=== PATIENT | female | born 1955 | race Caucasian/White ===

== ENCOUNTER 2022-02-24 07:16 | Emergency (ER) | payer MEDICARE, SELFPAY ==
[2022-02-24 07:16] VITALS: O2SAT 91
--- NOTE | 2022-02-24 07:21 | XRR_ITS ---
PROCEDURE INFORMATION: Exam: XR Chest Exam date and time: 02/24/2022 7:30 AM Age: 66 years old Clinical indication: Cough and dyspnea and shortness of breath; Patient HX: SOB, coughing x 6 days; Additional info: Dyspnea/cough TECHNIQUE: Imaging protocol: Radiologic exam of the chest. Views: 1 view. COMPARISON: No relevant prior studies available. FINDINGS: Lungs: The lungs are somewhat hyperinflated with increased interstitial markings, likely representing COPD. There is a patchy airspace opacity along the medial aspect of the right lung base, which may represent atelectasis or pneumonia in the adequate clinical setting. Pleural spaces: Unremarkable. No pleural effusion. No pneumothorax. Heart/Mediastinum: Stable cardiomediastinal silhouette. Bones/joints: Degenerative changes of the spine seen. XR/XR chest 1V portable [id number] IMPRESSION: 1. Medial right lung base atelectasis versus pneumonia. Clinical correlation is recommended. 2. COPD changes.
[2022-02-24 07:44] VITALS: BP 102/62; PULSE 89; RESP 17; TEMP 37.1; O2SAT 91; BMI 26.6
--- NOTE | 2022-02-24 07:55 | ED_ITS ---
HPI - COVID General: Chief Complaint: COVID symptoms Stated Complaint: Covid + since , SOB, Fever Time Seen by Provider: 02/24/22 07:20 Triage information: Has fever, cough or shortness of breath . Exposure to COVID + person last 14 days History of Present Illness: Patient is a 66-year-old female comes to the ED with COVID symptoms. Patient tested positive for COVID-19 via at home test on the first day she started developing symptoms 7 days ago. Her symptoms consisted of fever, nasal congestion drainage, cough, body aches and diarrhea. Provider wrote her prescription for Paxlovid and she has been taking doses daily and her last dose is today. she is still having some shortness of breath and a cough. Cough is mostly dry and nonproductive. Patient has home pulse ox and states that last night her oxygen levels were running in the 80s at home. Fevers resolved 2 days ago. COVID 19 common symptoms: positive fever(s), non-productive cough, dyspnea, fatigue, body aches and diarrhea; negative chills, productive cough, headache(s), throat pain, nasal congestion, nausea or vomiting COVID 19 other sytmptoms: negative chest pain COVID Results: No Data to Display Review of Systems Const: Reports: fever(s), body aches and fatigue; Denies: chills Eyes: Denies: change in vision or eye discomfort ENMT: Denies: throat pain, odynophagia, nasal discharge or nasal congestion Card: Denies: chest pain, palpitations, edema, swelling of feet/ankles, dyspnea on exertion or orthopnea Resp: Reports: dyspnea and non-productive cough; Denies: productive cough GI: Reports: diarrhea; Denies: abdominal pain, nausea, vomiting, constipation or hematochezia : Denies: flank pain, dysuria or hematuria Musc: Denies: neck pain, back pain or extremity swelling Skin/Breast: Denies: rash or new lesions Neuro: Denies: headache(s), numbness in extremities or weakness in extremities PFS ED PFSH: Medical History No pertinent family history Surgical History No pertinent past surgical history Physical Exam Const: COMMON NORMALS: no acute distress, patient oriented x3, healthy appearing and alert GENERAL APPEARANCE: cooperative and comfortable HENMT: COMMON NORMALS: normocephalic HEAD & SCALP: normocephalic MOUTH: Normal oral and palatal mucosa present THROAT: posterior oropharynx normal and uvula midline Neck/C-Spine: COMMON NORMALS: supple GENERAL: Yes normal visual inspection Resp: COMMON NORMALS: normal respiratory effort, No retractions, No use of accessory muscles and clear to auscultation bilaterally AUSCULTATION: clear to auscultation bilaterally Cardio: COMMON NORMALS: regular rate, regular rhythm, S1 normal heart sound present, S2 normal heart sound present, No gallops present (Cardio), No clicks present (Cardio), No murmurs present (Cardio) and Peripheral pulses 2+ throughout RATE: regular rate RHYTHM: regular rhythm HEART SOUNDS: S1 normal heart sound present and S2 normal heart sound present PERIPHERAL PULSES: Peripheral pulses 2+ throughout GI: COMMON NORMALS: Normal to inspection, nondistended, normoactive bowel sounds present, Soft to palpation, non-tender and no masses PALPATION: Yes Soft to palpation : COMMON NORMALS: Yes no CVA tenderness BLADDER/KIDNEY EXAM: Yes no CVA tenderness Back/Pelvis: COMMON NORMALS: no CVA tenderness Extremity: COMMON NORMALS: normal to inspection Neuro: COMMON NORMALS: patient oriented x3 and moves all extremities SENSORIUM/ORIENTATION: Yes alert Skin: GENERAL SKIN EXAM: dry skin Course Vital Signs: Vital signs: Vital Signs Temperature 98.8 F 02/24/22 07:44 Pulse Rate 89 02/24/22 07:44 Respiratory Rate 17 02/24/22 07:44 Blood Pressure 102/62 02/24/22 07:44 Pulse Oximetry 93 02/24/22 08:[address] [facility] - COVID Medical Decision Making Patient is a 66-year-old female who comes to the ED with COVID symptoms. Patient had a positive home COVID test and symptoms started 7 days ago. Put patient on Paxlovid and she is taking her last dose today. She still having some shortness of breath and says her home oxygen levels last night were in the 80s. Vitals are stable table here in the ED and her O2 sat is around 91 to 92% consistently. Exam is benign and patient appears nontoxic and in no acute distress. COVID 19 test pending. Chest x-ray showed medial right lung base atelectasis versus pneumonia. Due to patient's O2 sat being close to low 90s a nd her's COVID diagnosis I am discharging her home with 2 L of home O2 as needed. Patient diagnosed with COVID-19 and discharged home with a prescription for Z-Miguel, steroid and Tessalon Perles. She was told to follow-up with her PCP in the next 3 to 5 days for reevaluation. Return to ED precautions given. Patient understood and agreed with plan. Lab Data I reviewed the patient's lab results. Radiology Impressions Chest X-Ray 02/24/22 07:21 IMPRESSION: 1. Medial right lung base atelectasis versus pneumonia. Clinical correlation is recommended. 2. COPD changes. No Data to Display Discharge Plan Discharge Patient Disposition: Home Clinical Impression: COVID-19 Condition: Stable Prescriptions: New azithromycin 250 mg tablet See Rx Instructions .ROUTE .COMPLEX Qty: 6 0RF Rx Instructions: For 250 mg dose pack: take 500 mg today (day 1), then 250 mg for 4 days (days 2-5) Medrol (Miguel) 4 mg tablets,dose pack See Rx Instructions .ROUTE .COMPLEX Qty: 21 0RF Rx Instructions: orally per package directions benzonatate 100 mg capsule 100 mg PO TID PRN (Reason: cough) Qty: 15 0RF Discharge Orders: Discharge ED (Routine); Ordered 02/24/22 Ordered By: Fausto Adame Other Ambulatory Orders: DME: Oxygen (Order) Location: None Selected Ordered By: Fausto Adame Discharge Diet: Regular Discharge Activity: Increase activity as tolerated Patient Instructions: Using Oxygen at Home (ED), COVID-19 (Coronavirus Disease 2019) (ED) Activity Restrictions/Additional Instructions: Follow-up with medical provider as directed in the next 3 to 5 days for reevaluation. Use home O2 as needed for any shortness of breath or low oxygen levels. take medications as prescribed. Return to the ER or your medical provider if condition worsens. Please read and understand discharge inst ructions. Thank you for choosing [facility] for your healthcare needs today. Please realize this is an emergency room and that we are providing you with a medical screening exam and this may not be complete and all inclusive of all the testing and or work up that you may need to determine your ailment or severity of your illness. It is very important that you follow up as instructed or that you return to the Emergency Department should you have concerns or if your condition changes or worsens in any way. Coding Level of Care Code ED Berry Grower for Mariposa Alicea Exam Comprehensive
[2022-02-24 08:06] VITALS: O2SAT 93; O2SAT 94
[2022-02-24 10:01] VITALS: O2SAT 94
[2022-02-25 13:58] LABS: Quest SARS-CoV-2 RNA INCONCLUSIVE (NOT DETECTED)
== END 2022-02-24 10:02 | disposition home or self-care (01) ==
PROVIDERS: Emergency Provider Physician Assistant
DX: U07.1 COVID-19 (principal)
CPT/HCPCS: 71045; 87635; 94760; 99284

== ENCOUNTER 2024-11-20 13:05 | Observation (INO) | payer MEDICARE, SELFPAY ==
[2024-11-20] VITALS (14 sets, daily range): BP systolic 102–134; BP diastolic 51–69; PULSE 93–105; RESP 16–17; TEMP 36.8–37.8; O2SAT 91–97; BMI 27.6
[2024-11-20 13:29] LABS: Basophils % 0.2 %; Eosinophils % 0.1 %; Hematocrit 42.9 % (36-47); Lymphocytes % 5.8 %; Mean Corpuscular HGB Conc 33.3 g/dL (30-55); Mean Corpuscular Hemoglobin 29.6 pg (27-33); Mean Corpuscular Volume 88.8 fl (85-98); Mean Platelet Volume 11.3 fL (7.4-10.4); Monocytes # 0.8 10^3/uL (0.2-0.9); Monocytes % 4.4 %; Neutrophils # 15.12 10^3/uL (1.8-7.7); Nucleated Red Blood Cells % 0 %; Platelet Count 237 10^3/cmm (157-399); Red Blood Count 4.83 10^6/uL (3.85-5.65); Red Cell Distribution Width 13.4 % (12.1-15.1); White Blood Count 16.98 10^3/uL (3.29-11.43)
[2024-11-20 13:48] LABS: Alanine Aminotransferase 11 U/L (0-33); Albumin Level 4.1 g/dL (3.5-5.2); Alkaline Phosphatase 73 U/L (35-105); Anion Gap 16.4 (5-19); Aspartate Amino Transferase 19 U/L (0-32); Blood Urea Nitrogen 19 mg/dL (8-23); Calcium 8.9 mg/dL (8.5-10.5); Carbon Dioxide 24 mmol/L (22-29); Chloride 103 mmol/L (98-107); Creatinine Clr Calc Pharmacy 66.2488; Globulin 2.5 g/dL (1.3-4.6); Glomerular Filtration Rate 99.1 mL/min (90-130); Glucose 137 mg/dL (65-115); Lipase 15 U/L (13-60); Osmolality Calculated 294 mOsm/kg (285-295); Potassium 3.4 mmol/L (3.5-5.1); Sodium 140 mmol/L (136-145); Total Bilirubin 0.5 mg/dL (0.15-1.2); Total Protein 6.6 g/dL (6.6-8.7)
--- NOTE | 2024-11-20 14:53 | CT_ITS ---
WS: [id number] CT ABDOMEN AND PELVIS WITH CONTRAST HISTORY: abd pain TECHNIQUE: Imaging performed of the abdomen and pelvis with IV contrast. Single phase imaging of the abdomen. Coronal and sagittal reformats are submitted. All CT scans at [facility] use at least one of these dose optimization techniques: automated exposure control; mA and/or kV adjustment per patient size (includes targeted exams where dose is matched to clinical indication); or iterative reconstruction. IV CONTRAST: Omnipaque 350; 100 mL IV. Oral contrast: No DLP: 360.26 mGy.cm COMPARISON: None available. Lower thorax: Benign granuloma RIGHT lung base. Heart is normal size. Small hiatal hernia. Atherosclerotic calcifications in the distal thoracic aorta. Liver/biliary system: Normal size with no intrahepatic dilatation. Gallbladder: Normal. No gallstones or wall thickening. No pericholecystic fluid. Pancreas: Normal size pancreas and pancreatic duct. No adjacent inflammation. Spleen: Normal size spleen. No mass or infarct. Granulomata. Adrenal glands: Normal. Right kidney: Normal. Left kidney: Normal. Aorta: Extensive atherosclerotic plaque within the abdominal aorta. There is intimal thickening and calcified plaque within the wall of the aorta. 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 Most significant stenosis involves the origin of the SMA. No thrombus is identified. Lymphadenopathy: None. Free fluid: Small amount of free fluid in the pelvis. GI tract: Nondistended stomach. No small bowel obstruction. There is a single loop of small bowel deep within the pelvis with mild enhancement although no dilatation. The appendix is not identified. Long segment mucosal thickening with edema involving the descending colon nearly to the level of the rectum. There is marked submucosal edema and narrowing of the lumen with pericolonic edema. There are a few scattered diverticula. Abdominal wall: Unremarkable abdominal wall. No hernia. Pelvis: Small amount of free fluid in the pelvis. Bones: Mild increase in lumbar lordosis. L4 anterolisthesis by [address]/CT abdomen pelvis w con* [id number] IMPRESSION: 1. Long segment markedly abnormal loop of distal colon beginning near the sple tim flexure to nearly the rectum. Narrowing of the lumen with marked submucosal edema and inflammation. Due to the long segment this may be infectious or isch emic. No pneumatosis or free air is identified. 2. Small amount of free fluid in the pelvis. 3. Moderate atherosclerotic plaque within the aorta and mesenteric arteries. T here is a component of stenosis involving the proximal SMA. No portal venous ai r. 4. There is an additional loop of small bowel deep within the pelvis which als o appears mildly edematous suggesting acute enteritis. Notified Tj Li DO at 11/20/2024 4:16 PM.
[2024-11-20 15:15] LABS: Bilirubin Urine 1+ (Negative); Blood Urine Negative (Negative); Glucose Urine UA Negative (Normal); Ketones Urine Trace (Negative); Leukocyte Esterase Urine Trace (Negative); Nitrate Urine Negative (Negative); Protein Urine 1+ (Negative); Urine Appearance Cloudy (CLEAR); Urine Color Dark Yellow (Yellow); pH Urine 5.5 (5-7)
--- NOTE | 2024-11-20 15:15 | W.ED.ABDPA2 ---
HPI - Abdominal Pain General: Chief Complaint: Abdominal Pain Stated Complaint: vomiting Time Seen by Provider: 11/20/24 14:04 History of Present Illness: 69-year-old female presents emergency room complaining of abdominal cramping and discomfort along with diarrhea that began around 3 AM. She has had several bloody stools. Subjectively reporting a fever she is mildly tachycardic on arrival no vomiting. No recent medication changes denies chest pain or shortness of breath no dysuria urgency or frequency Associated Symptoms: Reports diarrhea, hematochezia and nausea; Denies chills, coffee ground emesis, dysuria, fever(s), hematemesis, melena and vomiting Related Data Home Medications ?Medication ?Instructions ?Recorded ?Confirmed albuterol sulfate 90 mcg/actuation 2 puff inhalation Q4H PRN 11/20/24 11/20/24 aerosol inhaler Shortness Of Breath Or Wheezing aspirin 81 mg tablet,delayed 81 mg PO DAILY 11/20/24 11/20/24 release (Nikkie Low Dose Aspirin) famotidine 40 mg tablet 40 mg PO BID 11/20/24 11/20/24 losartan 100 1 tab PO DAILY 11/20/24 11/20/24 mg-hydrochlorothiazide 25 mg tablet metoprolol tartrate 25 mg tablet 25 mg PO BID 11/20/24 11/20/24 omeprazole 20 mg capsule,delayed 20 mg PO QAM 11/20/24 11/20/24 release Allergies Allergy/AdvReac Type Severity Reaction Status Date / Time No Known Allergies Allergy Verified 11/20/24 13:39 Review of Systems Const: Denies: fever(s) or chills Card: Denies: chest pain Resp: Denies: dyspnea GI: Reports: abdominal pain, nausea, diarrhea and hematochezia; Denies: vomiting, hematemesis, coffee ground emesis, melena or mucus in stool : Denies: dysuria, urinary frequency or urinary urgency Musc: Denies: neck pain or back pain Skin/Breast: Denies: rash PFSH ED PFSH: Medical History No pertinent family history Surgical History No pertinent past surgical history Physical Exam Const: GENERAL APPEARANCE: cooperative ORIENTATION/CONSCIOUSNESS: Yes awake, Yes oriented to person, Yes oriented to place and Yes oriented to time HENMT: COMMON NORMALS: normocephalic, atraumatic and hearing grossly normal bilaterally HEAD & SCALP: normocephalic and atraumatic Resp: COMMON NORMALS: normal respiratory effort, No retractions, No use of accessory muscles and clear to auscultation bilaterally AUSCULTATION: clear to auscultation bilaterally Cardio: COMMON NORMALS: regular rate, regular rhythm and No murmurs present (Cardio) RATE: regular rate RHYTHM: regular rhythm GI: COMMON NORMALS: No hepatosplenomegaly present AUSCULTATION: Yes normoactive bowel sounds PALPATION: Yes Tenderness to palpation present (GI) (Diffuse), No Guarding due to palpation present (GI) and Yes No hepatosplenomegaly present Extremity: COMMON NORMALS: normal to inspection, capillary refill normal, no clubbing, cyanosis or edema, no calf tenderness and no pedal edema Neuro: SENSORIUM/ORIENTATION: Yes oriented to person, Yes oriented to place and Yes oriented to time Skin: COMMON NORMALS: no rashes or lesions noted GENERAL SKIN EXAM: no rashes or lesions noted Course Vital Signs: Vital signs: Vital Signs Temperature 98.2 F 11/20/24 13:35 Pulse Rate 103 H 11/20/24 13:35 Respiratory Rate 16 11/20/24 13:35 Blood Pressure 102/65 11/20/24 13:35 Pulse Oximetry 94 11/20/24 13:35 MDM - Abdominal Pain Medical Decision Making Acute colitis appears to be infectious given her white count discussing with radiology. There is no evidence of perforation or pneumatosis of the colon there is no evidence of ischemia at this time. Started on Cipro and Flagyl discussed with hospitalist will admit keep patient n.p.o. also discussed with general surgery who has Medical Records I reviewed the patient's medical records. Lab Data I reviewed the patient's lab results. 11/20/24 13:23 11/20/24 13:23 Labs/Radiology: Radiology Impressions Abdomen/Pelvis CT 11/20/24 14:53 IMPRESSION: 1. Long segment markedly abnormal loop of distal colon beginning near the splenic flexure to nearly the rectum. Narrowing of the lumen with marked submucosal edema and inflammation. Due to the long segment this may be infectious or ischemic. No pneumatosis or free air is identified. 2. Small amount of free fluid in the pelvis. 3. Moderate atherosclerotic plaque within the aorta and mesenteric arteries. There is a component of stenosis involving the proximal SMA. No portal venous air. 4. There is an additional loop of small bowel deep within the pelvis which also appears mildly edematous suggesting acute enteritis. Notified Tj Li DO at 11/20/2024 4:16 PM. Laboratory Results WBC 16.98 10^3/uL (3.29-11.43) H 11/20/24 13:23 RBC 4.83 10^6/uL (3.85-5.65) 11/20/24 13:23 Hgb 14.30 g/dL (11.27-16.99) 11/20/24 13:23 Hct 42.9 % (36-47) 11/20/24 13:23 MCV 88.8 fl (85-98) 11/20/24 13:23 MCH 29.6 pg (27-33) 11/20/24 13:23 MCHC 33.3 g/dL (30-55) 11/20/24 13:23 RDW 13.4 % (12.1-15.1) 11/20/24 13:23 Plt Count 237 10^3/cmm (157-399) 11/20/24 13:23 MPV 11.3 fL (7.4-10.4) H 11/20/24 13:23 Neut % (Auto) 89.0 % 11/20/24 13:23 Lymph % (Auto) 5.8 % 11/20/24 13:23 H[place] % (Auto) 4.4 % 11/20/24 13:23 Eos % (Auto) 0.1 % 11/20/24 13:23 Baso % (Auto) 0.2 % 11/20/24 13:23 Neut # (Auto) 15.12 10^3/uL (1.8-7.7) H 11/20/24 13:23 Lymph # (Auto) 1.0 10^3/uL (0.8-4.8) 11/20/24 13:23 Hays # (Auto) 0.8 10^3/uL (0.2-0.9) 11/20/24 13:23 Eos # (Auto) 0.0 10^3/uL (0.0-0.8) 11/20/24 13:23 Baso # (Auto) 0.0 10^3/uL (0.0-0.1) 11/20/24 13:23 Nucleated RBC % (auto) 0 % 11/20/24 13:23 Nucleated RBCs # 0.0 /100WBC 11/20/24 13:23 Sodium 140 mmol/L (136-145) 11/20/24 13:23 Potassium 3.4 mmol/L (3.5-5.1) L 11/20/24 13:23 Chloride 103 mmol/L (98-107) 11/20/24 13:23 Carbon Dioxide 24 mmol/L (22-29) 11/20/24 13:23 Anion Gap 16.4 (5-19) 11/20/24 13:23 BUN 19 mg/dL (8-23) 11/20/24 13:23 Creatinine 0.6 mg/dL (0.5-0.9) 11/20/24 13:23 GFR Calculation 99.1 mL/min (90-130) 11/20/24 13:23 Glucose 137 mg/dL (65-115) H 11/20/24 13:23 Calculated Osmolality 294 mOsm/kg (285-295) 11/20/24 13:23 Lactic Acid 1.4 mmol/L (0.5-2.2) 11/20/24 13:23 Calcium 8.9 mg/dL (8.5-10.5) 11/20/24 13:23 Total Bilirubin 0.5 mg/dL (0.15-1.2) 11/20/24 13:23 AST 19 U/L (0-32) 11/20/24 13:23 ALT 11 U/L (0-33) 11/20/24 13:23 Alkaline Phosphatase 73 U/L (35-105) 11/20/24 13:23 Total Protein 6.6 g/dL (6.6-8.7) 11/20/24 13:23 Albumin 4.1 g/dL (3.5-5.2) 11/20/24 13:23 Globulin 2.5 g/dL (1.3-4.6) 11/20/24 13:23 Lipase 15 U/L (13-60) 11/20/24 13:23 Urine Color Dark yellow (Yellow) A 11/20/24 14:25 Urine Appearance Cloudy (CLEAR) A 11/20/24 14:25 Urine pH 5.5 (5-7) 11/20/24 14:25 Ur Specific [place] 1.035 (1.005-1.030) H 11/20/24 14:25 Urine Protein 1+ (Negative) A 11/20/24 14: Urine Glucose (UA) Negative (Normal) 11/20/24 14: Urine Ketones Trace (Negative) 11/20/24 14: Urine Blood Negative (Negative) 11/20/24 14: Urine Nitrate Negative (Negative) 11/20/24 14: Urine Bilirubin 1+ (Negative) H 11/20/24 14: Urine Urobilinogen 1.0 mg/dL (Negative) 11/20/24 14:25 Ur Leukocyte Esterase Trace (Negative) A 11/20/24 14:25 Urine RBC 0-2 /hpf (0-2) 11/20/24 14:25 Urine WBC 0-5 /hpf (0-5) 11/20/24 14:25 Ur Squamous Epith Cells 51-100 /hpf (0-5) 11/20/24 14:25 Amorphous Sediment Not Reportable 11/20/24 14: Urine Bacteria 1+ /hpf (NONE) H 11/20/24 14:25 Hyaline Casts 2.05 /lpf 11/20/24 14:25 All radiology interpretation(s) finalized by discharge Discharge Plan Discharge Patient Disposition: Admitted As Inpatient Admit Provider: Ada Edward Clinical Impression: Colitis presumed infectious Condition: Stable Coding Level of Care Code ED Provider Education Specialist for Mariposa Alicea
[2024-11-20 15:17] LABS: Add Urine Microscopic? YES; Bacteria Urine 1+ /hpf; Hyaline Casts Urine 2.05 /lpf; RBC Urine 0-2 /hpf (0-2); Squamous Epithelial Cell Urine 51-100 /hpf (0-5); WBC Urine 0-5 /hpf (0-5)
[2024-11-20 15:20] LABS: Lactic Sepsis W/Reflex 1.4 mmol/L (0.5-2.2)
[2024-11-20 15:48] LABS: Specific Gravity, Urine 1.035 (1.005-1.030)
[2024-11-20] MEDS: iohexol 350 mg/mL 500 mL Btl (per mL) IV (16:07)
[2024-11-20] MEDS: ciprofloxacin 400 MG/200 ML PREMIX 200 MG IV (16:58)
[2024-11-20] MEDS: sodium chloride 0.9% 1,000 ML 999 ML IV (16:59)
--- NOTE | 2024-11-20 17:22 | PM.CONSULT ---
Providers/Reason For Consult Consulting Physician/Specialty*: Dr. Lau general surgery Reason for Consult*: Colitis Attending Physician: Ada Edward MD History of Present Illness History of Present Illness Nevin Pal is a 69 year old female who presents with abdominal pain. CT scan findings consistent with colitis extending from the splenic flexure down to the rectum. Patient reports intermittent fevers. Patient has never had this episode before. She also reports some blood in the stool. No mucus. No family history of inflammatory bowel disease. Medications/Allergies Home Medications ?Medication ?Instructions ?Recorded ?Confirmed ?Last Taken ?Type albuterol sulfate 90 mcg/actuation 2 puff inhalation Q4H PRN 11/20/24 11/20/24 Unknown History aerosol inhaler Shortness Of Breath Or Wheezing aspirin 81 mg tablet,delayed 81 mg PO DAILY 11/20/24 11/20/24 11/20/24 History release (Nikkie Low Dose Aspirin) famotidine 40 mg tablet 40 mg PO BID 11/20/24 11/20/24 11/20/24 History losartan 100 1 tab PO DAILY 11/20/24 11/20/24 11/20/24 History mg-hydrochlorothiazide 25 mg tablet metoprolol tartrate 25 mg tablet 25 mg PO BID 11/20/24 11/20/24 11/20/24 History omeprazole 20 mg capsule,delayed 20 mg PO QAM 11/20/24 11/20/24 11/20/24 History release Allergies Allergy/AdvReac Type Severity Reaction Status Date / Time No Known Allergies Allergy Verified 11/20/24 13:39 Current Medications Generic Name Dose Route Start Last Admin Trade Name Freq PRN Reason Stop Dose Admin Sodium Chloride 1,000 mls @ 999 mls/hr 11/20/24 16:31 11/20/24 16:59 Sodium Chloride 0.9% IV 11/20/24 17:31 999 mls/hr .Q1H1M ONE Administration Ciprofloxacin/Dextrose 400 mg in 200 mls @ 200 mls/hr 11/20/24 16:31 11/20/24 16:58 Cipro IV 11/20/24 17:30 200 mls/hr ONCE ONE Administration Protocol PFSH Acute PFSH: Medical History No pertinent family history Surgical History No pertinent past surgical history Vitals/I&O/Wt Last Vital Signs Temp 98.2 F 11/20/24 13:35 Pulse 103 H 11/20/24 13:35 Resp 16 11/20/24 13:35 BP 102/65 11/20/24 13:35 Pulse Ox 94 11/20/24 13:35 Weight last 48 hrs Weight 160 lb Physical Exam Narrative: Chest: Unlabored breathing room air. No lymphadenopathy. Heart: Regular rate and rhythm. Abdomen: Soft, diffusely tender, nondistended. No masses or lymphadenopathy. Data 11/20/24 18:24 11/20/24 13:23 Micro: Microbiology 11/20/24 15:03 Blood Culture - Preliminary Blood SPECIMEN COLLECTED 11/20/24 15:01 Blood Culture - Preliminary Blood SPECIMEN COLLECTED A&P Assessment and plan (1) Colitis presumed infectious: Plan 69-year-old female who presents with colitis. Unclear etiology. Recommend infectious workup. Bowel rest for now. IV fluids. Consider antibiotics. Will follow. No surgical intervention indicated. PDMP PDMP Reviewed: Not Reviewed Coding Level of Care Code 39738 Diagnoses Colitis presumed infectious K52.9
--- NOTE | 2024-11-20 17:34 | PM.HP ---
Providers/Chief Complaint Admitting Physician: Ada Edward MD Chief Complaint: vomiting History of Present Illness Nevin Pal is a 69 year old female with past medical history of HTN, GERD, presented with c/o abdominal pain, nausea and vomiting since 3am this morning. As per the patient she was all well until 3 AM this morning, when she started having abdominal pain, diffuse and crampy, 10/10 in intensity, associated with diarrhea, loose watery/bloody, 20 episodes until she came to ER for further evaluation. She also complained of nausea and vomiting multiple episodes, bilious, nonbloody. She did report eating outside restaurant food yesterday evening. Denies any history of fever She never had colonoscopy or upper GI endoscopy done in the past. Did not have similar complaints in the past. Review of Systems General: Reports: 10 or more systems reviewed and unremarkable except in HPI and below Medications/Allergies Home Medications ?Medication ?Instructions ?Recorded ?Confirmed ?Last Taken ?Type albuterol sulfate 90 mcg/actuation 2 puff inhalation Q4H PRN 11/20/24 11/20/24 Unknown History aerosol inhaler Shortness Of Breath Or Wheezing aspirin 81 mg tablet,delayed 81 mg PO DAILY 11/20/24 11/20/24 11/20/24 History release (Nikkie Low Dose Aspirin) famotidine 40 mg tablet 40 mg PO BID 11/20/24 11/20/24 11/20/24 History losartan 100 1 tab PO DAILY 11/20/24 11/20/24 11/20/24 History mg-hydrochlorothiazide 25 mg tablet metoprolol tartrate 25 mg tablet 25 mg PO BID 11/20/24 11/20/24 11/20/24 History omeprazole 20 mg capsule,delayed 20 mg PO QAM 11/20/24 11/20/24 11/20/24 History release Allergies Allergy/AdvReac Type Severity Reaction Status Date / Time No Known Allergies Allergy Verified 11/20/24 13:39 PFSH Acute PFSH: Medical History No pertinent family history Surgical History No pertinent past surgical history Vitals/I&O/Wt Last Vital Signs Temp 98.2 F 11/20/24 13:35 Pulse 103 H 11/20/24 13:35 Resp 16 11/20/24 13:35 BP 102/65 11/20/24 13:35 Pulse Ox 94 11/20/24 13:35 Weight last 48 hrs Weight 72.575 kg Physical Exam Narrative: She is alert awake oriented x 3, in moderate distress due to abdominal pain Chest clear to auscultation bilaterally Cardiovascular normal heart sounds no murmurs Abdomen soft, distended, diffusely tender, normal bowel sounds Extremities no edema noted bilateral lower extremity Data 11/20/24 13:23 11/20/24 13:23 Micro: Microbiology 11/20/24 15:03 Blood Culture - Preliminary Blood SPECIMEN COLLECTED 11/20/24 15:01 Blood Culture - Preliminary Blood SPECIMEN COLLECTED A&P Assessment and plan (1) Colitis presumed infectious: (2) Hypertension: (3) GERD (gastroesophageal reflux disease): (4) UTI (urinary tract infection): Plan Nevin Pal is a 69 year old female with past medical history of HTN, GERD, presented with c/o abdominal pain, nausea and vomiting since 3am this morning. As per the patient she was all well until 3 AM this morning, when she started having abdominal pain, diffuse and crampy, 10/10 in intensity, associated with diarrhea, loose watery/bloody, 20 episodes until she came to ER for further evaluation. She also complained of nausea and vomiting multiple episodes, bilious, nonbloody. She did report eating outside restaurant food yesterday evening. Denies any history of fever She never had colonoscopy or upper GI endoscopy done in the past. Did not have similar complaints in the past. #Acute colitis likely infectious CT abdomen pelvis with contrast showed IMPRESSION: 1. Long segment markedly abnormal loop of distal colon beginning near the splenic flexure to nearly the rectum. Narrowing of the lumen with marked submucosal edema and inflammation. Due to the long segment this may be infectious or ischemic. No pneumatosis or free air is identified. 2. Small amount of free fluid in the pelvis. 3. Moderate atherosclerotic plaque within the aorta and mesenteric arteries. There is a component of stenosis involving the proximal SMA. No portal venous air. 4. There is an additional loop of small bowel deep within the pelvis which also appears mildly edematous suggesting acute enteritis. WBC count 16.9 Received IV normal saline bolus 1 L, IV ciprofloxacin and IV Flagyl in ER Will continue IV ciprofloxacin 400 mg twice daily IV Flagyl 500 mg every 8 hours Continue IV fluids normal saline at 75 cc/h N.p.o. for now IV morphine 2 mg every 4 hours as needed for pain IV Zofran 4 mg every 6 hours as needed for nausea/vomiting IV Protonix 40 mg every 12 hours Surgery consulted in ED, follow-up for further recommendations #UTI-likely secondary to dehydration Continue IV antibiotics as above #Hypertension-blood pressure soft 102/65 Will hold INTERNET SYSTEMS ADMINISTRATOR metoprolol and losartan?hydrochlorothiazide #GERD-will hold INTERNET SYSTEMS ADMINISTRATOR famotidine and omeprazole GI prophylaxis with IV Protonix DVT prophylaxis with SCD CODE STATUS discussed with patient, she is full code for now PDMP PDMP Reviewed: Not Reviewed Attestations Medical Necessity Statement*: Need continued hospitalization not crossing 2 midnights for management of acute colitis, GI bleed, surgery consult and IV antibiotics Time Spent in Patient Care: 40minutes Coding Level of Care Code Acute Code for [facility] Fwd Diagnoses Colitis presumed infectious K52.9 Hypertension I10 GERD (gastroesophageal reflux disease) K21.9 UTI (urinary tract infection) N39.0 Time Spent (min) 40
[2024-11-20] MEDS: morphine 4 mg/mL SDV 1 mL 2 MG IVP (17:53)
[2024-11-20 18:36] LABS: Basophils % 0.1 %; Hematocrit 37.2 % (36-47); Lymphocytes # 1.8 10^3/uL (0.8-4.8); Lymphocytes % 11.6 %; Mean Corpuscular HGB Conc 33.1 g/dL (30-55); Mean Corpuscular Hemoglobin 29.2 pg (27-33); Mean Corpuscular Volume 88.4 fl (85-98); Mean Platelet Volume 11.3 fL (7.4-10.4); Monocytes # 0.8 10^3/uL (0.2-0.9); Neutrophils # 12.98 10^3/uL (1.8-7.7); Neutrophils % 82.8 %; Nucleated Red Blood Cells % 0 %; Platelet Count 191 10^3/cmm (157-399); Red Blood Count 4.21 10^6/uL (3.85-5.65); Red Cell Distribution Width 13.6 % (12.1-15.1); White Blood Count 15.67 10^3/uL (3.29-11.43)
--- NOTE | 2024-11-20 18:39 | PC.NURSE ---
Patient not on floor until 1809
[2024-11-20] MEDS: metroNIDAZOLE IV 500 MG/100 ML PREMIX 100 MG IV (18:43)
[2024-11-20] MEDS: pantoprazole 40 mg SDV IVP (18:44)
[2024-11-20] MEDS: sodium chloride 0.9% 1,000 ML 75 ML IV (18:44)
[2024-11-21] VITALS (10 sets, daily range): BP systolic 107–126; BP diastolic 55–72; PULSE 82–89; RESP 15–17; TEMP 37.1–37.3; O2SAT 90–94
[2024-11-21 00:01] LABS: Hematocrit 35.1 % (36-47)
[2024-11-21] MEDS: metroNIDAZOLE IV 500 MG/100 ML PREMIX 100 MG IV ×3 (01:56→18:09)
[2024-11-21] MEDS: morphine 4 mg/mL SDV 1 mL 2 MG IVP ×3 (01:56→11:46)
[2024-11-21] MEDS: ciprofloxacin 200 MG/100 ML PREMIX 100 MG IV ×2 (05:06→18:07)
[2024-11-21] MEDS: pantoprazole 40 mg SDV IVP ×2 (05:06→18:10)
[2024-11-21 05:52] LABS: Hematocrit 35.4 % (36-47)
[2024-11-21 06:06] LABS: INR 1.21 (0.8-1.2)
[2024-11-21 06:12] LABS: Anion Gap 14.1 (5-19); Blood Urea Nitrogen 12 mg/dL (8-23); Calcium 7.9 mg/dL (8.5-10.5); Carbon Dioxide 21 mmol/L (22-29); Chloride 108 mmol/L (98-107); Glucose 96 mg/dL (65-115); Magnesium 1.8 mg/dL (1.7-2.3); Osmolality Calculated 290 mOsm/kg (285-295); Phosphorus 2.4 mg/dL (2.5-4.5); Potassium 3.1 mmol/L (3.5-5.1); Sodium 140 mmol/L (136-145)
--- NOTE | 2024-11-21 09:09 | PC.CHAP ---
Pastoral Care Encounter/Spiritual Assessment Type of Contact [] Declined paraplanner visit [] Patient/Family/Request visit [] Outpatient visit [] Follow-up visit [] Physician referral [] Code/Alert [x] Routine visit [] Staff referral [] Actively dying [] Patient sleeping [] Family support [] [] Out of room [] Palliative care [] [] Receiving care in room [] Pre-surgical visit [] Trauma [] Long length of stay [] ICU visit [] Other: Relational/Emotional Strength [x] Patient feels connected with others/family/visitors/staff [] Distress [] Loneliness/isolation [] Abandonment Spirituality of Patient [x] Person of Luana [] Attends Taoism of their Luana [x] Believes in Prayer [] Reads Bible or Nondenominational materials [] There are Spiritual issues to be addressed Storehouse Clerk Interventions [x] Prayer [x] Active listening [] Non-anxious presence [x] Spiritual/emotional support [] Crisis/trauma care [] Spiritual counseling [] Bereavement support [] Provided bereavement packet [] Provided Bible/devotional materials [] Provided toy/stuffed animal, coloring book to patient or family member [] Provided Communion [] Anointing/[place] [] Salvation [x] Completed spiritual assessment [] Other: Impact on Illness or Injury [] Angry [] Fearful [] Anxious [] Often cries [] Exhaustion [] Unable to work [] Unable to attend jewish [] Unable to walk/stand [] Unable to read [] Unable to drive [] Unable to eat/drink [] Unable to sleep [] Unable to be with family [] Patient intubated [] Other: Summary Time spent with patient 5 min
[2024-11-21] MEDS: sodium chloride 0.9% 1,000 ML 75 ML IV (09:38)
[2024-11-21] MEDS: potassium chloride ER 20 mEq Tablet 40 MEQ PO ×2 (09:39→14:57)
[2024-11-21 10:31] LABS: C.Diff PCR (Lab) NEGATIVE (Negative)
--- NOTE | 2024-11-21 10:56 | P.PN_ITS ---
Subjective 2 Subjective: Abdominal pain improved Persistent diarrhea No hematochezia Abdomen benign and soft Infectious workup pending Vitals/I&O/Wt Last Vital Signs Temp 98.8 F 11/21/24 07:50 Pulse 82 11/21/24 08:32 Resp 16 11/21/24 08:32 BP 111/58 11/21/24 07:50 Pulse Ox 91 11/21/24 08:32 O2 Del Method Room Air 11/21/24 08:32 11/20/24 11/21/24 11/21/24 22:59 06:59 14:59 Intake Total 1300 / 1300 200 / 1500 1000 / 1000 Balance 1300 / 1300 200 / 1500 1000 / 1000 Weight last 48 hrs Weight 162 lb 6.4 oz Weight 166 lb 7 oz Weight 160 lb Physical Exam 2 Narrative: Chest: Unlabored breathing room air. No lymphadenopathy. Heart: Regular rate and rhythm. Abdomen: Soft, mildly tender, nondistended. No masses or lymphadenopathy. Data 11/21/24 05:38 11/21/24 05:38 Micro: Microbiology 11/20/24 15:03 Blood Culture - Preliminary Blood SPECIMEN COLLECTED 11/20/24 15:01 Blood Culture - Preliminary Blood SPECIMEN COLLECTED A&P Assessment and plan (1) Colitis presumed infectious: Plan 69-year-old female who presented with colitis. Unknown etiology. Infectious workup pending. Agree with bowel rest and antibiotics. Continue medical management. PDMP PDMP Reviewed: Not Reviewed Attestations 2 Medical Necessity Statement*: N/A Coding Level of Care Code 86170 Diagnoses Colitis presumed infectious K52.9
[2024-11-21] MEDS: lidocaine 1% 5 ML in potassium chloride premix 100 ML 26.25 ML IV (11:40)
--- NOTE | 2024-11-21 12:18 | P.PN_ITS ---
Subjective 2 Subjective: Seen her at bedside this morning. Still complaining of diffuse abdominal pain and had 1 episode of minimal amount of bloody diarrhea. Denies any complaint of nausea/vomiting. Frequency of diarrhea improved Medications: Reviewed: Yes Vitals/I&O/Wt Last Vital Signs Temp 98.7 F 11/21/24 11:40 Pulse 88 11/21/24 11:40 Resp 16 11/21/24 11:46 BP 126/72 11/21/24 11:40 Pulse Ox 94 11/21/24 11:40 O2 Del Method Room Air 11/21/24 11:40 11/20/24 11/21/24 11/21/24 22:59 06:59 14:59 Intake Total 1300 / 1300 200 / 1500 1000 / 1000 Balance 1300 / 1300 200 / 1500 1000 / 1000 Weight last 48 hrs Weight 73.663 kg Weight 75.495 kg Weight 72.575 kg Physical Exam 2 Narrative: She is alert awake oriented x 3, in moderate distress due to abdominal pain Chest clear to auscultation bilaterally Cardiovascular normal heart sounds no murmurs Abdomen soft, distended, diffusely tender, normal bowel sounds Extremities no edema noted bilateral lower extremity Data 11/21/24 05:38 11/21/24 05:38 Micro: Microbiology 11/21/24 09:16 Stool Lactoferrin - Final Stool 11/20/24 15:03 Blood Culture - Preliminary Blood SPECIMEN COLLECTED 11/20/24 15:01 Blood Culture - Preliminary Blood SPECIMEN COLLECTED A&P Assessment and plan (1) Colitis presumed infectious: (2) Hypertension: (3) GERD (gastroesophageal reflux disease): (4) UTI (urinary tract infection): Plan Nevin Pal is a 69 year old female with past medical history of HTN, GERD, presented with c/o abdominal pain, nausea and vomiting since 3am this morning. As per the patient she was all well until 3 AM this morning, when she started having abdominal pain, diffuse and crampy, 10/10 in intensity, associated with diarrhea, loose watery/bloody, 20 episodes until she came to ER for further evaluation. She also complained of nausea and vomiting multiple episodes, bilious, nonbloody. She did report eating outside restaurant food yesterday evening. Denies any history of fever She never had colonoscopy or upper GI endoscopy done in the past. Did not have similar complaints in the past. #Acute colitis likely infectious CT abdomen pelvis with contrast showed IMPRESSION: 1. Long segment markedly abnormal loop of distal colon beginning near the splenic flexure to nearly the rectum. Narrowing of the lumen with marked submucosal edema and inflammation. Due to the long segment this may be infectious or ischemic. No pneumatosis or free air is identified. 2. Small amount of free fluid in the pelvis. 3. Moderate atherosclerotic plaque within the aorta and mesenteric arteries. There is a component of stenosis involving the proximal SMA. No portal venous air. 4. There is an additional loop of small bowel deep within the pelvis which also appears mildly edematous suggesting acute enteritis. WBC count 16.9, Hb 14.3 Received IV normal saline bolus 1 L, IV ciprofloxacin and IV Flagyl in ER Will continue IV ciprofloxacin 400 mg twice daily IV Flagyl 500 mg every 8 hours Continue IV fluids normal saline at 75 cc/h N.p.o. for now IV morphine 2 mg every 4 hours as needed for pain IV Zofran 4 mg every 6 hours as needed for nausea/vomiting IV Protonix 40 mg every 12 hours Surgery consulted in ED, follow-up for further recommendations #UTI-likely secondary to dehydration Continue IV antibiotics as above #Hypertension-blood pressure soft 102/65 Will hold PULLMAN CONDUCTOR metoprolol and losartan?hydrochlorothiazide #GERD-will hold PULLMAN CONDUCTOR famotidine and omeprazole GI prophylaxis with IV Protonix DVT prophylaxis with SCD CODE STATUS discussed with patient, she is full code for now #11/21/24 WBC trending down to 15.6 Hemoglobin 14.3-->12.3-->11.7-->11.5 H/H q12h. Continue current management Will check stool studies Hypokalemia likely secondary to diarrhea. Replaced Follow-up surgery for further recommendations. PDMP PDMP Reviewed: Not Reviewed Attestations 2 Medical Necessity Statement*: Need continued hospitalization not crossing 2 midnights for management of acute colitis, GI bleed, surgery consult and IV antibiotics Time Spent in Patient Care: 20minutes Coding Level of Care Code Acute Code for [facility] Fwd Diagnoses Colitis presumed infectious K52.9 Hypertension I10 GERD (gastroesophageal reflux disease) K21.9 UTI (urinary tract infection) N39.0 Time Spent (min) 20
[2024-11-21 19:14] LABS: Hematocrit 35.1 % (36-47)
--- NOTE | 2024-11-21 20:16 | PC.NURSE ---
pt family requested to take pt out and plan to take her to [facility], stating they feel she will get better care there. Dr. Patel notified and nurse advised to bluntly tell pt and family that the pt is high risk for , high mortality risk, poor outcome and does not advice for pt to be discharged. nurse relayed this to pt and her family and all verbalized understanding. AMA form signed by pt, IV removed.
--- NOTE | 2024-11-21 20:21 | PC.NURSE ---
charge nurse notified this nurse that Dr. Patel is coming up to speak with pt and family before pt leaves
--- NOTE | 2025-02-15 17:20 | PM.DCS ---
Discharge Providers Date of Admission: 11/20/24 17:15 Date of Discharge: February 15, 2025 Attending Provider at Admission: Ada Edward MD Attending Provider at Discharge: Ada Edward MD Diagnoses at Discharge Discharge Diagnosis 1. Colitis presumed infectious: Reason for Visit Reason for Visit: vomiting Hospital Course Hospital Course 69-year-old lady admitted after presenting with abdominal pain, nausea and vomiting, diarrhea, with findings of colitis on CT with intermittent fevers was treated for colitis with IV ciprofloxacin and Flagyl, was assessed by surgery. Received IV fluid hydration, Zofran as needed, Protonix, was not found to be in need of surgical intervention. Received antibiotic coverage also for urinary tract infection. Continued on antibiotic coverage with noted blood in diarrhea. Stool studies were negative for Shiga toxin, Salmonella, Campylobacter, ova or parasites. Lactoferrin was positive. Blood cultures were negative. She is noted to have left the hospital with family AGAINST MEDICAL ADVICE on 11/21 with the intention to go to [place]. Discharge Data Studies Completed and Pending Completed Studies During Hospitalization Category Date Time Status CT abdomen pelvis w con* [id number] Stat Cat Scan 11/20/24 14:53 Completed OVA and Parasites, Conc and PE Routine Lab 11/21/24 09:16 Completed Salmonella / Shigella / Campy Routine Lab 11/21/24 09:16 Completed Radiology Impressions Abdomen/Pelvis CT 11/20/24 14:53 IMPRESSION: 1. Long segment markedly abnormal loop of distal colon beginning near the splenic flexure to nearly the rectum. Narrowing of the lumen with marked submucosal edema and inflammation. Due to the long segment this may be infectious or ischemic. No pneumatosis or free air is identified. 2. Small amount of free fluid in the pelvis. 3. Moderate atherosclerotic plaque within the aorta and mesenteric arteries. There is a component of stenosis involving the proximal SMA. No portal venous air. 4. There is an additional loop of small bowel deep within the pelvis which also appears mildly edematous suggesting acute enteritis. Notified Tj Li DO at 11/20/2024 4:16 PM. Laboratory Results WBC 15.67 10^3/uL (3.29-11.43) H 11/20/24 18:24 RBC 4.21 10^6/uL (3.85-5.65) 11/20/24 18:24 Hgb 11.40 g/dL (11.27-16.99) 11/21/24 18:56 Hct 35.1 % (36-47) L 11/21/24 18:56 MCV 88.4 fl (85-98) 11/20/24 18:24 MCH 29.2 pg (27-33) 11/20/24 18:24 MCHC 33.1 g/dL (30-55) 11/20/24 18:24 RDW 13.6 % (12.1-15.1) 11/20/24 18:24 Plt Count 191 10^3/cmm (157-399) 11/20/24 18:24 MPV 11.3 fL (7.4-10.4) H 11/20/24 18:24 Neut % (Auto) 82.8 % 11/20/24 18:24 Lymph % (Auto) 11.6 % 11/20/24 18: [place] % (Auto) 5.0 % 11/20/24 18: Eos % (Auto) 0.0 % 11/20/24 18: Baso % (Auto) 0.1 % 11/20/24 18:24 Neut # (Auto) 12.98 10^3/uL (1.8-7.7) H 11/20/24 18:24 Lymph # (Auto) 1.8 10^3/uL (0.8-4.8) 11/20/24 18:24 [place] # (Auto) 0.8 10^3/uL (0.2-0.9) 11/20/24 18: Eos # (Auto) 0.0 10^3/uL (0.0-0.8) 11/20/24 18:24 Baso # (Auto) 0.0 10^3/uL (0.0-0.1) 11/20/24 18: Nucleated RBC % (auto) 0 % 11/20/24 18: Nucleated RBCs # 0.0 /100WBC 11/20/24 18: PT 16.10 SECONDS (12.1-14.9) H 11/21/24 05:38 INR 1.21 (0.8-1.2) H 11/21/24 05:38 Sodium 140 mmol/L (136-145) 11/21/24 05:38 Potassium 3.1 mmol/L (3.5-5.1) L 11/21/24 05:38 Chloride 108 mmol/L (98-107) H 11/21/24 05:38 Carbon Dioxide 21 mmol/L (22-29) L 11/21/24 05:38 Anion Gap 14.1 (5-19) 11/21/24 05:38 BUN 12 mg/dL (8-23) 11/21/24 05:38 Creatinine 0.7 mg/dL (0.5-0.9) 11/21/24 05:38 GFR Calculation 83.0 mL/min (90-130) L 11/21/24 05:38 Glucose 96 mg/dL (65-115) 11/21/24 05:38 Calculated Osmolality 290 mOsm/kg (285-295) 11/21/24 05:38 Lactic Acid 1.4 mmol/L (0.5-2.2) 11/20/24 13:23 Calcium 7.9 mg/dL (8.5-10.5) L 11/21/24 05:38 Phosphorus 2.4 mg/dL (2.5-4.5) L 11/21/24 05:38 Magnesium 1.8 mg/dL (1.7-2.3) 11/21/24 05:38 Total Bilirubin 0.5 mg/dL (0.15-1.2) 11/20/24 13:23 AST 19 U/L (0-32) 11/20/24 13:23 ALT 11 U/L (0-33) 11/20/24 13:23 Alkaline Phosphatase 73 U/L (35-105) 11/20/24 13:23 Total Protein 6.6 g/dL (6.6-8.7) 11/20/24 13:23 Albumin 4.1 g/dL (3.5-5.2) 11/20/24 13:23 Globulin 2.5 g/dL (1.3-4.6) 11/20/24 13:23 Lipase 15 U/L (13-60) 11/20/24 13:23 Urine Color Dark yellow (Yellow) A 11/20/24 14:25 Urine Appearance Cloudy (CLEAR) A 11/20/24 14:25 Urine pH 5.5 (5-7) 11/20/24 14:25 Ur Specific [place] 1.035 (1.005-1.030) H 11/20/24 14:25 Urine Protein 1+ (Negative) A 11/20/24 14:25 Urine Glucose (UA) Negative (Normal) 11/20/24 14:25 Urine Ketones Trace (Negative) 11/20/24 14:25 Urine Blood Negative (Negative) 11/20/24 14:25 Urine Nitrate Negative (Negative) 11/20/24 14:25 Urine Bilirubin 1+ (Negative) H 11/20/24 14:25 Urine Urobilinogen 1.0 mg/dL (Negative) 11/20/24 14:25 Ur Leukocyte Esterase Trace (Negative) A 11/20/24 14:25 Urine RBC 0-2 /hpf (0-2) 11/20/24 14:25 Urine WBC 0-5 /hpf (0-5) 11/20/24 14:25 Ur Squamous Epith Cells 51-100 /hpf (0-5) 11/20/24 14: Amorphous Sediment Not Reportable 11/20/24 14:25 Urine Bacteria 1+ /hpf (NONE) H 11/20/24 14:25 Hyaline Casts 2.05 /lpf 11/20/24 14:25 C. difficile (PCR) Negative (Negative) 11/21/24 09:16 Vitals Last Vital Signs Temp 99.1 F 11/21/24 19:27 Pulse 85 11/21/24 19:27 Resp 17 11/21/24 19:27 BP 119/69 11/21/24 19:27 Pulse Ox 90 11/21/24 19:27 O2 Del Method Room Air 11/21/24 19:27 Discharge Plan Discharge Patient Disposition: Home Condition: Stable Prescriptions: No Action famotidine 40 mg tablet 40 mg PO BID losartan-hydrochlorothiazide 100-25 mg tablet 1 tab PO DAILY omeprazole 20 mg capsule,delayed release(DR/EC) 20 mg PO QAM albuterol sulfate 90 mcg/actuation HFA aerosol inhaler 2 puff INHALATION Q4H PRN (Reason: Shortness Of Breath Or Wheezing) metoprolol tartrate 25 mg tablet 25 mg PO BID aspirin [Nikkie Low Dose Aspirin] 81 mg Tablet,Delayed Release (Dr/Ec) 81 mg PO DAILY Patient Instructions: Opioid Safety Discharge Attestations Time Spent in Discharge Care*: greater than 30 min Quality Metrics Clinical Quality Measures [ No reported AMI, CVA or VTE this stay] Coding Level of Care Code 21694 Total time (in minutes) for Discharge: 35 Diagnoses Colitis presumed infectious K52.9
== END 2024-11-21 20:45 | disposition home or self-care (01) ==
LOC: ER 15:17 → MEDSURG 17:47
PROVIDERS: Emergency Medicine; Physician Assistant; Admitting Provider Internal Medicine; Emergency Provider Family Medicine; Visit Provider Internal Medicine
DX: K52.9 Noninfective gastroenteritis and colitis, unspecified (principal); Z79.82 Long term (current) use of aspirin; K21.9 Gastro-esophageal reflux disease without esophagitis; N39.0 Urinary tract infection, site not specified; Z53.29 Procedure and treatment not carried out because of patient's decision for other reasons; I10 Essential (primary) hypertension
CPT/HCPCS: 36415; 74177; 80048; 80053; 81001; 83605; 83630; 83690; 83735; 84100; 85014; 85018; 85025; 85610; 87040; 87045; 87177; 87209; 87427; 87449; 87493; 96365; 96366; 96367; 96375; 96376; 99285; G0378; J0744; J2270; J2470; J3480; J3490; J7030; J9999